=== PATIENT | male | born 1990 | race Two or more races ===

== ENCOUNTER 2017-05-06 10:54 | Day surgery (SDC) | payer BC ==
[2017-05-06] MEDS ORDERED: METOCLOPRAMIDE 10 MG INJ (11:10)
[2017-05-06] MEDS ORDERED: LIDOCAINE 4% SOLUTION 50 ML BTL (11:10)
[2017-05-06] MEDS ORDERED: FENTAnyl 50 MCG/ML VIAL (11:53)
[2017-05-06] MEDS ORDERED: MIDAZOLAM 1 MG/ML 2 ML INJ ×2 (11:53)
== END 2017-05-06 14:34 | disposition home or self-care (01) ==
LOC: GIL 10:54
DX: K29.50 Unspecified chronic gastritis without bleeding (principal); K29.80 Duodenitis without bleeding
CPT/HCPCS: 43239; 88305; 88312; 88313